=== PATIENT | female | born 1995 | race Caucasian/White ===

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

== ENCOUNTER 2017-01-03 13:37 | Emergency (ER) | payer MEDICAID ==
[~2017-01-03] VITALS: Wt 60.6 kg
[~2017-01-03 13:37] MED LIST changes: +CEPH-443 PO
[2017-01-03] MEDS ORDERED: ACETAMINOPHEN 500 MG TAB PO STA (14:11)
--- NOTE | 2017-01-03 14:47 | RADRPT ---
PROCEDURE: US OB AND ULTRASOUND CERVIX. CLINICAL INDICATION: abdominal pain TECHNIQUE: Multiple sonographic images of the pelvis and gravid uterus were obtained. The images were reviewed on a PACS workstation. COMPARISON: 12/17/2016 FINDINGS: The cervix has a length of 3.6 cm. There is a single viable intrauterine gestation. Cardiac activity is present with 144 beats per min r[place]. There is a variable presentation. The placenta is anterior. There is no evidence for an abruption or placenta previa. MVP = 3.6 cm. Measurements were made in order to determine age. The results are as follows: BPD =3.4 cm HC =12.9 cm AC =10.6 cm FL =2.0 cm Estimated gestational age of approximately 16 weeks and 3 days based on ultrasound measurements. Clinical age: 16 weeks and 2 days. The estimated date of delivery is 06/17/17, based on ultrasound measurements. The EFW = 153 g, 46%, based on LMP age. RPTAT: AA IMPRESSION: Single viable intrauterine gestation of approximately 16 weeks and 3 days based on ultrasound measu rements. .Maco Munoz MD, Date Time Electronically viewed and signed by .Maco Munoz MD, MD on 01/03/2017 14:47 .S/
--- NOTE | 2017-01-03 14:49 | RADRPT ---
PROCEDURE: US abdomen limited CLINICAL INDICATION: Lower abdominal pain. TECHNIQUE: Multiple Doppler, color flow and dueñas scale ultrasound images were acquired of the bila teral lower quadrants utilizing a high resolution transducer. COMPARISON: None FINDINGS: The appendix is not distinctly visualized. However, no blind ending, fluid-filled, dilated, noncomp ressible tubular structures are identified in the right lower quadrant. No free fluid is observed. No gross lymphadenopathy is seen. Bilateral ovaries are identified and demonstrate a normal echogenicity. The ovaries demonstrate norm al vascularity. No adnexal masses are seen. IMPRESSION: No visualized evidence of acute appendicitis. However, the appendix is not distinctly visualized. I f there is clinical suspicion for appendicitis further evaluation with CT is recommended. Unremarkable ovaries. RPTAT: AA .Dung Olea MD, MD Date Time Electronically viewed and signed by .Dung Olea MD, MD on 01/03/2017 14:48 .P/
--- NOTE | 2017-01-03 15:35 | ERD ---
ER Documentation Chief Complaint Chief Complaint ABD PAIN, NO N/V/D, PT 16 WKS PG, NO VB HPI This is a 21-year-old female who presents the emergency department today complaining of lower abdominal pelvic pain for the past 2 days. Patient states she has pain with walking. Denies any fevers or chills, dysuria, nausea vomiting or diarrhea. States she has not taken any medication for the pain. States she is approximately 4 months . Denies any vaginal bleeding or vaginal discharge. ROS All systems reviewed and are negative except as per history of present illness. Medications Home Meds Active Scripts Acetaminophen* (Tylophen*) 500 Mg Capsule, 1 CAP PO Q6H Y for PAIN AND OR ELEVATED TEMP, #30 CAP Prov:NAHEED ZEE PA-C 01/03/17 Nitrofurantoin Monohyd Macrocr* (Macrobid*) 100 Mg Capsr, 100 MG PO BID for 7 Days, CAP Prov:NAHEED ZEEC 01/03/17 Acetaminophen* (Tylophen*) 500 Mg Capsule, 1 CAP PO Q6H Y for PAIN AND OR ELEVATED TEMP, #15 CAP Prov:ROXANA MIGUEL MD 12/17/16 Cephalexin* (Keflex*) 500 Mg Capsule, 500 MG PO QID for 5 Days, CAP Prov:ROXANA MIGUEL MD 12/17/16 Ondansetron Hcl* (Zofran*) 4 Mg Tablet, 4 MG PO Q6H for NAUSEA AND/OR VOMITING, #30 TAB Prov:NAHEED ZEE PA-C 05/07/16 Acetaminophen* (Tylophen*) 500 Mg Capsule, 1 CAP PO Q6H Y for PAIN AND OR ELEVATED TEMP, #30 CAP Prov:NAHEED ZEEC 05/07/16 Ibuprofen* (Motrin*) 600 Mg Tab, 600 MG PO Q6, #30 TAB Prov:NAHEED ZEEC 05/07/16 Allergies Allergies: Coded Allergies: No Known Allergy (Unverified , 12/17/16) PMhx/Soc History of Surgery: No Anesthesia Reaction: No Hx Neurological Disorder: No Hx Respiratory Disorders: No Hx Cardiac Disorders: No Hx Psychiatric Problems: No Hx Miscellaneous Medical Probl: No (DENIES MEDICAL AND SURGICAL HX) Hx Alcohol Use: No Hx Substance Use: No Hx Tobacco Use: No Physical Exam Vitals Vital Signs Date Time Temp Pulse Resp B/P Pulse Ox O2 Delivery O2 Flow Rate FiO2 01/03/17 13:43 98.0 79 18 127/61 97 Physical Exam Const: NAD Head: Atraumatic Eyes: Normal Conjunctiva ENT: Normal External Ears, Nose and Mouth. Neck: Full range of motion..~ No meningismus. Resp: Clear to auscultation bilaterally Cardio: Regular rate and rhythm, no murmurs Abd: Soft, diffuse lower abdominal and pelvic tenderness non distended. Normal bowel sounds no specific tenderness to McBurney's. Skin: No petechiae or rashes Back: No midline or flank tenderness Ext: No cyanosis, or edema Neur: Awake and alert Psych: Normal Mood and Affect Result Diagram: 01/03/17 1500 01/03/17 1500 Results 24 hrs Laboratory Tests Test 01/03/17 15:00 White Blood Count 9.810^3/ul Red Blood Count 4.1910^6/ul Hemoglobin 13.3g/dl Hematocrit 37.2% Mean Corpuscular Volume 88.8fl Mean Corpuscular Hemoglobin 31.7pg Mean Corpuscular Hemoglobin Concent 35.8g/dl Red Cell Distribution Width 12.7% Platelet Count 32982^3/UL Mean Platelet Volume 10.9fl Neutrophils % 70.9% Lymphocytes % 18.8% Monocytes % 8.5% Eosinophils % 0.9% Basophils % 0.4% Nucleated Red Blood Cells % 0.0/100WBC Neutrophils # 6.910^3/ul Lymphocytes # 1.810^3/ul Monocytes # 0.810^3/ul Eosinophils # 0.110^3/ul Basophils # 0.010^3/ul Nucleated Red Blood Cells # 0.010^3/ul Urine Color YELLOW Urine Clarity SLIGHTLY CLOUDY Urine pH 6.0 Urine Specific [place] 1.018 Urine Ketones 1+mg/dL Urine Nitrite NEGATIVEmg/dL Urine Bilirubin NEGATIVEmg/dL Urine Urobilinogen NEGATIVEmg/dL Urine Leukocyte Esterase 3+Shayna/ul Urine Microscopic RBC 2/HPF Urine Microscopic WBC 4/HPF Urine Squamous Epithelial Cells FEW/HPF Urine Mucus FEW/HPF Urine Hemoglobin NEGATIVEmg/dL Urine Glucose NEGATIVEmg/dL Urine Total Protein NEGATIVEmg/dl Sodium Level 140mmol/L Potassium Level 3.5mmol/L Chloride Level 104mmol/L Carbon Dioxide Level 22mmol/L Anion Gap 18 Blood Urea Nitrogen 6mg/dl Creatinine 0.46mg/dl Glucose Level 73mg/dl Calcium Level 9.2mg/dl Total Bilirubin 0.3mg/dl Direct Bilirubin 0.00mg/dl Indirect Bilirubin 0.3mg/dl Aspartate Amino Transf (AST/SGOT) 27IU/L Alanine Aminotransferase (ALT/SGPT) 36IU/L Alkaline Phosphatase 80IU/L Total Protein 8.1g/dl Albumin 4.9g/dl Globulin 3.20g/dl Albumin/Globulin Ratio 1.53 Lipase 69U/L Beta HCG, Quantitative 41899.0mIU/ml Current Medications Medications (Trade) Dose Ordered Sig/Javi Route PRN Reason Start Time Stop Time Status Last Admin Dose Admin Acetaminophen 500 mg 500 mg ONCE STAT PO 01/03/17 14:11 01/03/17 14:14 DC 01/03/17 15:09 Ceftriaxone Sodium (Rocephin) 50 ml @ 100 mls/hr ONCE ONCE IVPB 01/03/17 17:00 01/03/17 17:29 01/03/17 17:01 DIAGNOSTIC IMAGING REPORT Patient: MINDI GOODEN : 1995 Age: 21 Sex: F MR #: [id number] DOS: 01/03/17 0000 Ordering MD: NAHEED ZEE PA-C Location: [facility] Room/Bed: PROCEDURE: US abdomen limited CLINICAL INDICATION: Lower abdominal pain. TECHNIQUE: Multiple Doppler, color flow and dueñas scale ultrasound images were acquired of the bilateral lower quadrants utilizing a high resolution transducer. COMPARISON: None FINDINGS: The appendix is not distinctly visualized. However, no blind ending, fluid- filled, dilated, noncompressible tubular structures are identified in the right lower quadrant. No free fluid is observed. No gross lymphadenopathy is seen. Bilateral ovaries are identified and demonstrate a normal echogenicity. The ovaries demonstrate normal vascularity. No adnexal masses are seen. IMPRESSION: No visualized evidence of acute appendicitis. However, the appendix is not distinctly visualized. If there is clinical suspicion for appendicitis further evaluation with CT is recommended. Unremarkable ovaries. RPTAT: AA .Dung Olea MD, MD Date Time Electronically viewed and signed by .Dung Olea MD, MD on 01/03/2017 14:48 .P/ CC: NAHEED ZEE PA-C DIAGNOSTIC IMAGING REPORT Patient: MINDI GOODEN : 1995 Age: 21 Sex: F MR #: [id number] DOS: 01/03/17 0000 Ordering MD: NAHEED ZEE PA-C Location: [facility] Room/Bed: PROCEDURE: US OB AND ULTRASOUND CERVIX. CLINICAL INDICATION: abdominal pain TECHNIQUE: Multiple sonographic images of the pelvis and gravid uterus were obtained. The images were reviewed on a PACS workstation. COMPARISON: 12/17/2016 FINDINGS: The cervix has a length of 3.6 cm. There is a single viable intrauterine gestation. Cardiac activity is present with 144 beats per minute. There is a variable presentation. The placenta is anterior. There is no evidence for an abruption or placenta previa. MVP = 3.6 cm. Measurements were made in order to determine age. The results are as follows: BPD = 3.4 cm HC = 12.9 cm AC = 10.6 cm FL = 2.0 cm Estimated gestational age of approximately 16 weeks and 3 days based on ultrasound measurements. Clinical age: 16 weeks and 2 days. The estimated date of delivery is 06/17/17, based on ultrasound measurements. The EFW = 153 g, 46%, based on LMP age. RPTAT: AA IMPRESSION: Single viable intrauterine gestation of approximately 16 weeks and 3 days based on ultrasound measurements. .Maco Munoz MD, MD Date Time Electronically viewed and signed by .Maco Munoz MD, MD on 01/03/2017 14: 47 .S/ CC: NAHEED ZEE PA-C Procedures/MDM This is a 21-year-old female who presents the emergency department today complaining of lower abdominal and pelvic pain for the past couple of days. Patient indicated she is approximately or months . Given this I did obtain a complete OB and abdominal pain workup Laboratory workup shows no elevated white blood cell count. She is not anemic. Platelets are within normal limits. Electrolytes are within normal limits. Glucose is within normal limits. Liver enzymes are within normal limits. Lipase is within normal limits. UA shows 3+ leukocyte esterase. Negative nitrites. 4 microscopic white blood cells. Quant hCG 31670 RH status O+ Ultrasound abdomen limited shows unremarkable ovaries. The appendix is not distinctly visualized however there is no blind ending fluid-filled dilated noncompressible tubular structures identified within the right lower quadrant. There is no free fluid. There is no gross lymphadenopathy. There is normal vascularity to both ovaries. There are no adnexal masses. Second trimester ultrasound shows a single viable intrauterine gestation of approximately 16 weeks and 3 days based on ultrasound measurements. heart tones are present at 144 bpm. There is no evidence for an abruption or placenta previa. Patient was given Tylenol here in the emergency department. Patient indicated that pain comes and goes. Patient has no elevated white blood cell count. She has no vaginal bleeding. She has had no fevers or vomiting and does not feel the patient requires further workup at this time. Patient has abdominal pain of uncertain etiology and may be related pains. Patient had 3+ leuks in her urine however there is not much bacteria. I will give the patient a prescription for Macrobid as patient was seen here a couple of weeks ago for pelvic pain during and was given a prescription for Keflex at that time to treat 1+ leuks. Urine was sent for culture. I do have low suspicion for acute surgical abdomen at this time. Patient was instructed to continue taking any Tylenol for pain. She was instructed to return for any worsening symptoms, fevers or vomiting. Patient understood. I did ask her to follow-up with her primary care doctor and [employer] specialist. At this time the patient is stable for discharge and outpatient management. Patient should follow up with their PCP in the next 1-2 days. They may return to the emergency department sooner for any persistent or worsening of symptoms. Patient understood and agreed with the plan. Dr. Miguel has seen and evaluated the patient and is in agreement with the plan Departure Diagnosis: Primary Impression: Abdominal pain during in second trimester Condition: NAHEED Waite PA-C Jan 03, 2017 15:35
--- NOTE | 2017-01-03 15:35 | ERD ---
ER Documentation Chief Complaint Chief Complaint ABD PAIN, NO N/V/D, PT 16 WKS PG, NO VB HPI This is a 21-year-old female who presents the emergency department today complaining of lower abdominal pelvic pain for the past 2 days. Patient states she has pain with walking. Denies any fevers or chills, dysuria, nausea vomiting or diarrhea. States she has not taken any medication for the pain. States she is approximately 4 months . Denies any vaginal bleeding or vaginal discharge. ROS All systems reviewed and are negative except as per history of present illness. Medications Home Meds Active Scripts Acetaminophen* (Tylophen*) 500 Mg Capsule, 1 CAP PO Q6H Y for PAIN AND OR ELEVATED TEMP, #30 CAP Prov:NAHEED ZEE PA-C 01/03/17 Nitrofurantoin Monohyd Macrocr* (Macrobid*) 100 Mg Capsr, 100 MG PO BID for 7 Days, CAP Prov:NAHEED ZEEC 01/03/17 Acetaminophen* (Tylophen*) 500 Mg Capsule, 1 CAP PO Q6H Y for PAIN AND OR ELEVATED TEMP, #15 CAP Prov:ROXANA MIGUEL MD 12/17/16 Cephalexin* (Keflex*) 500 Mg Capsule, 500 MG PO QID for 5 Days, CAP Prov:ROXANA MIGUEL MD 12/17/16 Ondansetron Hcl* (Zofran*) 4 Mg Tablet, 4 MG PO Q6H for NAUSEA AND/OR VOMITING, #30 TAB Prov:NAHEED ZEE PA-C 05/07/16 Acetaminophen* (Tylophen*) 500 Mg Capsule, 1 CAP PO Q6H Y for PAIN AND OR ELEVATED TEMP, #30 CAP Prov:NAHEED ZEEC 05/07/16 Ibuprofen* (Motrin*) 600 Mg Tab, 600 MG PO Q6, #30 TAB Prov:NAHEED ZEEC 05/07/16 Allergies Allergies: Coded Allergies: No Known Allergy (Unverified , 12/17/16) PMhx/Soc History of Surgery: No Anesthesia Reaction: No Hx Neurological Disorder: No Hx Respiratory Disorders: No Hx Cardiac Disorders: No Hx Psychiatric Problems: No Hx Miscellaneous Medical Probl: No (DENIES MEDICAL AND SURGICAL HX) Hx Alcohol Use: No Hx Substance Use: No Hx Tobacco Use: No Physical Exam Vitals Vital Signs Date Time Temp Pulse Resp B/P Pulse Ox O2 Delivery O2 Flow Rate FiO2 01/03/17 13:43 98.0 79 18 127/61 97 Physical Exam Const: NAD Head: Atraumatic Eyes: Normal Conjunctiva ENT: Normal External Ears, Nose and Mouth. Neck: Full range of motion..~ No meningismus. Resp: Clear to auscultation bilaterally Cardio: Regular rate and rhythm, no murmurs Abd: Soft, diffuse lower abdominal and pelvic tenderness non distended. Normal bowel sounds no specific tenderness to McBurney's. Skin: No petechiae or rashes Back: No midline or flank tenderness Ext: No cyanosis, or edema Neur: Awake and alert Psych: Normal Mood and Affect Result Diagram: 01/03/17 1500 01/03/17 1500 Results 24 hrs Laboratory Tests Test 01/03/17 15:00 White Blood Count 9.810^3/ul Red Blood Count 4.1910^6/ul Hemoglobin 13.3g/dl Hematocrit 37.2% Mean Corpuscular Volume 88.8fl Mean Corpuscular Hemoglobin 31.7pg Mean Corpuscular Hemoglobin Concent 35.8g/dl Red Cell Distribution Width 12.7% Platelet Count 93101^3/UL Mean Platelet Volume 10.9fl Neutrophils % 70.9% Lymphocytes % 18.8% Monocytes % 8.5% Eosinophils % 0.9% Basophils % 0.4% Nucleated Red Blood Cells % 0.0/100WBC Neutrophils # 6.910^3/ul Lymphocytes # 1.810^3/ul Monocytes # 0.810^3/ul Eosinophils # 0.110^3/ul Basophils # 0.010^3/ul Nucleated Red Blood Cells # 0.010^3/ul Urine Color YELLOW Urine Clarity SLIGHTLY CLOUDY Urine pH 6.0 Urine Specific [place] 1.018 Urine Ketones 1+mg/dL Urine Nitrite NEGATIVEmg/dL Urine Bilirubin NEGATIVEmg/dL Urine Urobilinogen NEGATIVEmg/dL Urine Leukocyte Esterase 3+Shayna/ul Urine Microscopic RBC 2/HPF Urine Microscopic WBC 4/HPF Urine Squamous Epithelial Cells FEW/HPF Urine Mucus FEW/HPF Urine Hemoglobin NEGATIVEmg/dL Urine Glucose NEGATIVEmg/dL Urine Total Protein NEGATIVEmg/dl Sodium Level 140mmol/L Potassium Level 3.5mmol/L Chloride Level 104mmol/L Carbon Dioxide Level 22mmol/L Anion Gap 18 Blood Urea Nitrogen 6mg/dl Creatinine 0.46mg/dl Glucose Level 73mg/dl Calcium Level 9.2mg/dl Total Bilirubin 0.3mg/dl Direct Bilirubin 0.00mg/dl Indirect Bilirubin 0.3mg/dl Aspartate Amino Transf (AST/SGOT) 27IU/L Alanine Aminotransferase (ALT/SGPT) 36IU/L Alkaline Phosphatase 80IU/L Total Protein 8.1g/dl Albumin 4.9g/dl Globulin 3.20g/dl Albumin/Globulin Ratio 1.53 Lipase 69U/L Beta HCG, Quantitative 35390.0mIU/ml Current Medications Medications (Trade) Dose Ordered Sig/Javi Route PRN Reason Start Time Stop Time Status Last Admin Dose Admin Acetaminophen 500 mg 500 mg ONCE STAT PO 01/03/17 14:11 01/03/17 14:14 DC 01/03/17 15:09 Ceftriaxone Sodium (Rocephin) 50 ml @ 100 mls/hr ONCE ONCE IVPB 01/03/17 17:00 01/03/17 17:29 01/03/17 17:01 DIAGNOSTIC IMAGING REPORT Patient: MINDI GOODEN : 1995 Age: 21 Sex: F MR #: [id number] DOS: 01/03/17 0000 Ordering MD: NAHEED ZEE PA-C Location: [facility] Room/Bed: PROCEDURE: US abdomen limited CLINICAL INDICATION: Lower abdominal pain. TECHNIQUE: Multiple Doppler, color flow and dueñas scale ultrasound images were acquired of the bilateral lower quadrants utilizing a high resolution transducer. COMPARISON: None FINDINGS: The appendix is not distinctly visualized. However, no blind ending, fluid- filled, dilated, noncompressible tubular structures are identified in the right lower quadrant. No free fluid is observed. No gross lymphadenopathy is seen. Bilateral ovaries are identified and demonstrate a normal echogenicity. The ovaries demonstrate normal vascularity. No adnexal masses are seen. IMPRESSION: No visualized evidence of acute appendicitis. However, the appendix is not distinctly visualized. If there is clinical suspicion for appendicitis further evaluation with CT is recommended. Unremarkable ovaries. RPTAT: AA .Dung Olea MD, MD Date Time Electronically viewed and signed by .Dung Olea MD, MD on 01/03/2017 14:48 .P/ CC: NAHEED ZEE PA-C DIAGNOSTIC IMAGING REPORT Patient: MINDI GOODEN : 1995 Age: 21 Sex: F MR #: [id number] DOS: 01/03/17 0000 Ordering MD: NAHEED ZEE PA-C Location: [facility] Room/Bed: PROCEDURE: US OB AND ULTRASOUND CERVIX. CLINICAL INDICATION: abdominal pain TECHNIQUE: Multiple sonographic images of the pelvis and gravid uterus were obtained. The images were reviewed on a PACS workstation. COMPARISON: 12/17/2016 FINDINGS: The cervix has a length of 3.6 cm. There is a single viable intrauterine gestation. Cardiac activity is present with 144 beats per minute. There is a variable presentation. The placenta is anterior. There is no evidence for an abruption or placenta previa. MVP = 3.6 cm. Measurements were made in order to determine age. The results are as follows: BPD = 3.4 cm HC = 12.9 cm AC = 10.6 cm FL = 2.0 cm Estimated gestational age of approximately 16 weeks and 3 days based on ultrasound measurements. Clinical age: 16 weeks and 2 days. The estimated date of delivery is 06/17/17, based on ultrasound measurements. The EFW = 153 g, 46%, based on LMP age. RPTAT: AA IMPRESSION: Single viable intrauterine gestation of approximately 16 weeks and 3 days based on ultrasound measurements. .Maco Munoz MD, MD Date Time Electronically viewed and signed by .Maco Munoz MD, MD on 01/03/2017 14: 47 .S/ CC: NAHEED ZEE PA-C Procedures/MDM This is a 21-year-old female who presents the emergency department today complaining of lower abdominal and pelvic pain for the past couple of days. Patient indicated she is approximately or months . Given this I did obtain a complete OB and abdominal pain workup Laboratory workup shows no elevated white blood cell count. She is not anemic. Platelets are within normal limits. Electrolytes are within normal limits. Glucose is within normal limits. Liver enzymes are within normal limits. Lipase is within normal limits. UA shows 3+ leukocyte esterase. Negative nitrites. 4 microscopic white blood cells. Quant hCG 33536 RH status O+ Ultrasound abdomen limited shows unremarkable ovaries. The appendix is not distinctly visualized however there is no blind ending fluid-filled dilated noncompressible tubular structures identified within the right lower quadrant. There is no free fluid. There is no gross lymphadenopathy. There is normal vascularity to both ovaries. There are no adnexal masses. Second trimester ultrasound shows a single viable intrauterine gestation of approximately 16 weeks and 3 days based on ultrasound measurements. heart tones are present at 144 bpm. There is no evidence for an abruption or placenta previa. Patient was given Tylenol here in the emergency department. Patient indicated that pain comes and goes. Patient has no elevated white blood cell count. She has no vaginal bleeding. She has had no fevers or vomiting and does not feel the patient requires further workup at this time. Patient has abdominal pain of uncertain etiology and may be related pains. Patient had 3+ leuks in her urine however there is not much bacteria. I will give the patient a prescription for Macrobid as patient was seen here a couple of weeks ago for pelvic pain during and was given a prescription for Keflex at that time to treat 1+ leuks. Urine was sent for culture. I do have low suspicion for acute surgical abdomen at this time. Patient was instructed to continue taking any Tylenol for pain. She was instructed to return for any worsening symptoms, fevers or vomiting. Patient understood. I did ask her to follow-up with her primary care doctor and [facility] specialist. At this time the patient is stable for discharge and outpatient management. Patient should follow up with their PCP in the next 1-2 days. They may return to the emergency department sooner for any persistent or worsening of symptoms. Patient understood and agreed with the plan. Dr. Miguel has seen and evaluated the patient and is in agreement with the plan Departure Diagnosis: Primary Impression: Abdominal pain during in second trimester Condition: NAHEED Waite PA-C Jan 03, 2017 15:35
[2017-01-03] MEDS ORDERED: CEFTRIAXONE 1 GM/50 ML (PMX) 50 ML IVPB ONE (17:00)
[2017-01-03] MEDS ORDERED: ACET500C5 PO (17:14)
[2017-01-03] MEDS ORDERED: NITR-58 PO (17:14)
== END 2017-01-03 18:26 | disposition home or self-care (01) ==
LOC: FTE 13:37
DX: O26.892 Other specified pregnancy related conditions, second trimester (principal); R10.2 Pelvic and perineal pain; Z3A.16 16 weeks gestation of pregnancy
CPT/HCPCS: 36415; 76705; 76805; 80053; 81001; 83690; 84702; 85025; 86900; 86901; 96374; J0696; Z7502; Z7610